=== PATIENT | female | born 1965 | race African-American/Black ===

== ENCOUNTER 2017-07-30 10:04 | Observation (INO) | payer OTHER ==
[2017-07-28 10:09] LABS: ALBUMIN 3.8 g/dL (3.4-5.0); ALKALINE PHOSPHATASE 80 U/L (46-116); ALT/SGPT 18 U/L (14-59); AST/SGOT 14 U/L (15-37); BASOPHIL % 0.6 % (0-2); BILIRUBIN TOTAL 0.4 mg/dL (0.20-1.00); CALCIUM 9.4 mg/dL (8.5-10.1); CARBON DIOXIDE 27.4 mmol/L (21-32); CHLORIDE SERUM 105 mmol/L (98-107); CHOLESTEROL 202 mg/dL (<200); CREATININE SERUM 0.8 mg/dL (0.6-1.0); GFR1 > 60 mL/min; GLUCOSE SERUM 104 mg/dL (74-106); LACTIC DEHYDROGENASE (LDH) 120 U/L (100-190); PHOSPHOROUS 3.3 mg/dL (2.5-4.9); PLATELET COUNT 309 x10^3mcL (130-400); RED CELL DISTRIBUTION WIDTH 13.4 % (11.5-14.5); SODIUM SERUM 138 mmol/L (136-145); TOTAL PROTEIN, SERUM 7.6 g/dL (6.4-8.2); URIC ACID 4.2 mg/dL (2.6-6.0)
[2017-07-28 10:14] LABS: T4(THYROXINE) 6.8 ug/dL (4.7-13.3)
[~2017-07-30] VITALS: Ht 157.5 cm; Wt 63.5 kg
[2017-07-30 10:13] VITALS: BP 156/77
[2017-07-30 13:18] LABS: CALCITONIN < 2.0 pg/mL (0.0-5.0)
[2017-07-30 14:29] VITALS: BP 138/81
[2017-07-30 15:11] LABS: CHOLESTEROL/HDL RATIO 3.3; PHOSPHOROUS 3.7 mg/dL (2.5-4.9)
[2017-07-30 16:00] VITALS: BP 133/79
[2017-07-30 16:52] VITALS: BP 123/78
[2017-07-30 19:54] VITALS: BP 121/68
[2017-07-31 05:47] VITALS: BP 123/68
[2017-07-31 08:44] VITALS: BP 120/77
[2017-07-31] MEDS ORDERED: APAP/HYDROCODON1 T13 PO (11:51)
[2017-07-31] MEDS ORDERED: COL100 PO (11:52)
[2017-07-31 12:38] VITALS: BP 120/77
== END 2017-07-31 13:15 | disposition home or self-care (01) | DRG 627 ==
LOC: MU 10:04
PROVIDERS: Family Medicine; Surgery
PROC: 0GBG0ZZ Excision of Left Thyroid Gland Lobe, Open Approach (ICD-10-PCS; principal; 2017-07-30 12:00)
DX: E04.2 Nontoxic multinodular goiter (principal); E78.00 Pure hypercholesterolemia, unspecified; Z68.25 Body mass index [BMI] 25.0-25.9, adult
CPT/HCPCS: 82308; G0378; J0330; J2175; J2250; J2405; J2704; J3010; J3490; J7030; J7120; Q0162

== ENCOUNTER → 2018-06-21 | Outpatient (CLI) | payer OTHER ==
[~2018-06-21] MED LIST: APAP/HYDROCODON1 T13 PO; COL100 PO
== END | disposition home or self-care (01) ==
LOC: MA 08:27
PROC: BH02ZZZ Plain Radiography of Bilateral Breasts (ICD-10-PCS; principal; 2018-06-21)
DX: Z12.31 Encounter for screening mammogram for malignant neoplasm of breast (principal)
CPT/HCPCS: 77067

== ENCOUNTER 2019-03-04 07:48 | Day surgery (SDC) | payer OTHER ==
[~2019-03-04] VITALS: Ht 157.5 cm; Wt 65.8 kg
[2019-03-04 08:09] VITALS: BP 134/81
[2019-03-04 14:09] VITALS: BP 114/76
== END 2019-03-04 13:10 | disposition home or self-care (01) ==
LOC: DS 07:48 → GI 11:00 → OR 11:00 → DS 13:10
DX: Z12.11 Encounter for screening for malignant neoplasm of colon (principal); D12.4 Benign neoplasm of descending colon; K63.89 Other specified diseases of intestine; K57.30 Diverticulosis of large intestine without perforation or abscess without bleeding; K64.8 Other hemorrhoids; E66.9 Obesity, unspecified; E89.0 Postprocedural hypothyroidism; Z68.27 Body mass index [BMI] 27.0-27.9, adult; Z88.0 Allergy status to penicillin
CPT/HCPCS: 45378; J1200; J1610; J2250; J2310; J3010; J3490